=== PATIENT | male | born 1970 | race African-American/Black ===

== ENCOUNTER 2019-05-16 16:31 | Emergency (ER) | payer BC ==
[2019-05-16 16:38] VITALS: Wt 90.0 kg
[2019-05-16] MEDS ORDERED: CYCLOBENZAPRINE10 MG PO (20:06)
[2019-05-16] MEDS ORDERED: HYDROCODON-ACE1 EAC7 PO (20:06)
[2019-05-16 20:55] VITALS: BP 142/96
== END 2019-05-16 20:55 | disposition home or self-care (01) ==
LOC: D.ER 16:31
DX: S16.1XXA Strain of muscle, fascia and tendon at neck level, initial encounter (principal); X58.XXXA Exposure to other specified factors, initial encounter; M62.838 Other muscle spasm; M47.812 Spondylosis without myelopathy or radiculopathy, cervical region